=== PATIENT | female | born 1950 | race Asian ===

== ENCOUNTER 2020-09-21 19:09 | Emergency (ER) | payer OTHER ==
[~2020-09-21] VITALS: Ht 152.4 cm; Wt 72.6 kg
[2020-09-21] MEDS ORDERED: LISI20 PO (23:54)
[2020-09-21] MEDS ORDERED: CHLO25B PO (23:54)
[2020-09-21] MEDS ORDERED: ATORVASTATIN CA20 MG PO (23:54)
[2020-09-22] MEDS ORDERED: Norco 5-325 Ta1 EACH PO (00:18)
== END 2020-09-22 00:27 | disposition home or self-care (01) ==
LOC: ER 19:09
DX: S52.502A Unspecified fracture of the lower end of left radius, initial encounter for closed fracture (principal); Z79.899 Other long term (current) drug therapy; W01.0XXA Fall on same level from slipping, tripping and stumbling without subsequent striking against object, initial encounter
CPT/HCPCS: 25605; 73100; 99283-25; A9270

== ENCOUNTER 2021-12-14 00:18 | Emergency (ER) | payer OTHER ==
[~2021-12-14] VITALS: Ht 152.4 cm; Wt 69.0 kg
[~2021-12-14 00:18] MED LIST: ATORVASTATIN CA20 MG PO; CHLO25B PO; LISI20 PO; Norco 5-325 Ta1 EACH PO
[2021-12-14 00:41] LABS: BASOPHILS ABSOLUTE AUTO 0.07 K/mm3 (0.00-0.23); BASOPHILS PERCENT AUTO 1 % (0-2); EOSINOPHILS ABSOLUTE AUTO 0.27 K/mm3 (0.00-0.68); EOSINOPHILS PERCENT AUTO 3 % (0-6); Hematocrit 48.1 % (33.0-51.0); IMMATURE GRAN ABSOLUTE AUTO 0.16 K/mm3 (0.00-0.10); IMMATURE GRAN PERCENT AUTO 2 % (0-1); LYMPHOCYTES ABSOLUTE AUTO 2.26 K/mm3 (0.84-5.20); LYMPHOCYTES PERCENT AUTO 27 % (21-46); MONOCYTES ABSOLUTE AUTO 0.46 K/mm3 (0.16-1.47); MONOCYTES PERCENT AUTO 5 % (4-13); Mean Corpuscular HGB 28.6 pg (26.0-34.0); Mean Corpuscular HGB Conc 33.3 g/dL (31.5-36.5); Mean Corpuscular Volume 86 fL (80-100); Mean Platelet Volume 9.8 fL (9.1-12.4); NEUTROPHILS ABSOLUTE AUTO 5.26 K/mm3 (1.96-9.15); NEUTROPHILS PERCENT AUTO 62 % (41-73); Platelet Count 215 K/mm3 (150-400); RDW Coefficient Variation 12.7 % (11.7-14.2); RDW Standard Deviation 39.9 fL (35.1-46.3); Red Blood Cell Count 5.59 M/mm3 (3.80-5.20); White Blood Cell Count 8.48 K/mm3 (4.00-11.30)
[2021-12-14 00:53] LABS: Albumin, Blood 3.6 g/dL (3.4-5.0); Albumin/Globulin Ratio 0.8 (0.8-1.8); Bilirubin, Total 0.3 mg/dL (0.1-1.0); Bun/Creatinine Ratio 29.5 (12.0-20.0); Calcium, Blood 9.2 mg/dL (8.5-10.1); Creatinine, Blood 0.58 mg/dL (0.40-1.00); Globulin, Blood 4.4 g/dL (2.2-4.0); Potassium, Blood 3.2 mmol/L (3.5-5.5)
[2021-12-14 02:14] LABS: SARS-Cov-2 (COVID-19) PCR, MMC NEGATIVE (NEGATIVE)
[2021-12-14 03:54] LABS: International Normalized Ratio 0.98; Prothrombin Time Results 10.3 Sec (9.7-11.5)
== END 2021-12-14 04:22 | disposition short-term general hospital (02) ==
LOC: ER 00:18
PROVIDERS: Student in an Organized Health Care Education/Training Program
DX: I61.0 Nontraumatic intracerebral hemorrhage in hemisphere, subcortical (principal); I10 Essential (primary) hypertension; F17.210 Nicotine dependence, cigarettes, uncomplicated; E78.5 Hyperlipidemia, unspecified; Z91.14 Patient's other noncompliance with medication regimen; Z20.822 Contact with and (suspected) exposure to COVID-19
CPT/HCPCS: 70450; 80053; 85025; 85610; 85730; 93005; 93010; J3480; J7030; J7050; U0004